=== PATIENT | male | born 1960 | race Caucasian/White ===

== ENCOUNTER 2017-07-10 08:28 | Outpatient (CLI) | payer OTHER ==
[~2017-07-10 08:28] MED LIST: ACTOS15 MG PO; GLIPIZIDE5 MG PO; HYZAAR 100-121 UDTAB PO; METFORMIN HCL500 MG PO; NEURONTIN300 MG PO
== END 2017-07-10 12:57 | disposition home or self-care (01) ==
LOC: LAB 08:28
DX: E11.9 Type 2 diabetes mellitus without complications (principal); Z79.4 Long term (current) use of insulin; E55.9 Vitamin D deficiency, unspecified; E78.2 Mixed hyperlipidemia; Z12.11 Encounter for screening for malignant neoplasm of colon; I10 Essential (primary) hypertension

== ENCOUNTER → 2017-12-11 08:04 | Outpatient (CLI) | payer OTHER | END | disposition home or self-care (01) | LOC: LAB 08:04 | DX: E11.65 Type 2 diabetes mellitus with hyperglycemia (principal); Z79.4 Long term (current) use of insulin; E78.2 Mixed hyperlipidemia; E03.8 Other specified hypothyroidism; E55.9 Vitamin D deficiency, unspecified ==

== ENCOUNTER 2018-07-19 10:16 | Outpatient (CLI) | payer OTHER | END 2018-07-19 10:49 | disposition home or self-care (01) | LOC: LAB 10:16 | DX: E03.8 Other specified hypothyroidism (principal); E11.65 Type 2 diabetes mellitus with hyperglycemia; E78.2 Mixed hyperlipidemia; E55.9 Vitamin D deficiency, unspecified; E04.2 Nontoxic multinodular goiter ==

== ENCOUNTER 2018-10-11 09:56 | Outpatient (CLI) | payer OTHER | END 2018-10-11 10:07 | disposition home or self-care (01) | LOC: LAB 09:56 | DX: R97.20 Elevated prostate specific antigen [PSA] (principal) ==

== ENCOUNTER 2018-11-22 10:27 | Outpatient (CLI) | payer OTHER | END 2018-11-22 10:33 | disposition home or self-care (01) | LOC: LAB 10:27 | DX: D64.89 Other specified anemias (principal); E11.9 Type 2 diabetes mellitus without complications; E78.2 Mixed hyperlipidemia; I10 Essential (primary) hypertension; E03.8 Other specified hypothyroidism ==

== ENCOUNTER 2018-12-31 14:12 | Emergency (ER) | payer OTHER ==
[~2018-12-31] VITALS: Ht 182.9 cm; Wt 112.0 kg
[2018-12-31] MEDS ORDERED: ASA81 MG PO (14:33)
[2018-12-31] MEDS ORDERED: GLIPIZIDE5 MG PO (14:34)
[2018-12-31] MEDS ORDERED: ATORVASTATIN CA10 MG PO (14:35)
[2018-12-31] MEDS ORDERED: CLARITIN10 M1 PO (15:09)
[2018-12-31] MEDS ORDERED: ZITHROMAX500 MG PO (15:09)
[2018-12-31] MEDS ORDERED: TUSNEL LIQUID178 ML PO (15:09)
== END 2018-12-31 15:21 | disposition home or self-care (01) ==
LOC: ER 14:12
DX: R05 Cough (principal)

== ENCOUNTER 2019-03-31 10:00 | Outpatient (CLI) | payer OTHER ==
[~2019-03-31 10:00] MED LIST changes: +ASA81 MG PO; +ATORVASTATIN CA10 MG PO; +CLARITIN10 M1 PO; +TUSNEL LIQUID178 ML PO; +ZITHROMAX500 MG PO
== END 2019-03-31 15:00 | disposition home or self-care (01) ==
LOC: LAB 10:00
DX: D64.89 Other specified anemias (principal); E11.9 Type 2 diabetes mellitus without complications; E78.2 Mixed hyperlipidemia; I10 Essential (primary) hypertension; E03.8 Other specified hypothyroidism

== ENCOUNTER 2019-06-27 10:28 | Outpatient (CLI) | payer OTHER | END 2019-06-27 10:37 | disposition home or self-care (01) | LOC: LAB 10:28 | DX: I10 Essential (primary) hypertension (principal); I25.10 Atherosclerotic heart disease of native coronary artery without angina pectoris; E78.01 Familial hypercholesterolemia; I35.1 Nonrheumatic aortic (valve) insufficiency; I34.0 Nonrheumatic mitral (valve) insufficiency; E66.8 Other obesity; Z68.33 Body mass index [BMI] 33.0-33.9, adult; E11.9 Type 2 diabetes mellitus without complications; E55.9 Vitamin D deficiency, unspecified; Z79.4 Long term (current) use of insulin; E88.81 Metabolic syndrome and other insulin resistance; Z98.61 Coronary angioplasty status ==

== ENCOUNTER → 2019-07-25 09:43 | Outpatient (CLI) | payer OTHER | END | disposition home or self-care (01) | LOC: LAB 09:43 | PROVIDERS: ATTEND Internal Medicine Sports Medicine | DX: D64.89 Other specified anemias (principal); E11.9 Type 2 diabetes mellitus without complications; E78.2 Mixed hyperlipidemia; I10 Essential (primary) hypertension; E03.8 Other specified hypothyroidism ==

== ENCOUNTER 2019-07-29 13:45 | Outpatient (CLI) | payer OTHER | END 2019-07-29 13:47 | disposition home or self-care (01) | LOC: SONOGRAMA 13:45 | PROVIDERS: ATTEND Internal Medicine Sports Medicine | DX: E03.8 Other specified hypothyroidism (principal); E04.1 Nontoxic single thyroid nodule ==

== ENCOUNTER 2019-08-05 09:52 | Outpatient (CLI) | payer OTHER | END 2019-08-05 10:22 | disposition home or self-care (01) | LOC: NUCLEAR 09:52 | PROVIDERS: ATTEND Otolaryngology Otolaryngology/Facial Plastic Surgery | DX: R42 Dizziness and giddiness (principal) ==

== ENCOUNTER → 2019-11-14 10:35 | Outpatient (CLI) | payer OTHER | END | disposition home or self-care (01) | LOC: LAB 10:35 | PROVIDERS: ATTEND Internal Medicine Sports Medicine | DX: E03.8 Other specified hypothyroidism (principal); E04.8 Other specified nontoxic goiter; E11.9 Type 2 diabetes mellitus without complications; E78.2 Mixed hyperlipidemia ==

== ENCOUNTER 2019-12-26 10:34 | Outpatient (CLI) | payer OTHER | END 2019-12-26 15:00 | disposition home or self-care (01) | LOC: LAB 10:34 | PROVIDERS: ATTEND Internal Medicine Endocrinology, Diabetes & Metabolism | DX: D64.89 Other specified anemias (principal); N39.0 Urinary tract infection, site not specified ==

== ENCOUNTER 2020-02-20 10:10 | Outpatient (CLI) | payer OTHER | END 2020-02-20 10:25 | disposition home or self-care (01) | LOC: LAB 10:10 | PROVIDERS: ATTEND Internal Medicine Endocrinology, Diabetes & Metabolism | DX: E03.8 Other specified hypothyroidism (principal); E11.65 Type 2 diabetes mellitus with hyperglycemia; E55.9 Vitamin D deficiency, unspecified; Z79.4 Long term (current) use of insulin; R94.6 Abnormal results of thyroid function studies ==

== ENCOUNTER → 2021-05-06 09:49 | Outpatient (CLI) | payer OTHER | END | disposition home or self-care (01) | LOC: LAB 09:49 | PROVIDERS: ATTEND Internal Medicine Endocrinology, Diabetes & Metabolism | DX: I25.10 Atherosclerotic heart disease of native coronary artery without angina pectoris (principal); I10 Essential (primary) hypertension; E78.01 Familial hypercholesterolemia; I35.1 Nonrheumatic aortic (valve) insufficiency; I34.0 Nonrheumatic mitral (valve) insufficiency; E66.8 Other obesity; E11.9 Type 2 diabetes mellitus without complications; E55.9 Vitamin D deficiency, unspecified; Z79.4 Long term (current) use of insulin; E88.81 Metabolic syndrome and other insulin resistance; Z68.33 Body mass index [BMI] 33.0-33.9, adult; Z98.61 Coronary angioplasty status; E78.2 Mixed hyperlipidemia; R94.6 Abnormal results of thyroid function studies; E11.59 Type 2 diabetes mellitus with other circulatory complications ==

== ENCOUNTER 2021-08-05 12:12 | Outpatient (CLI) | payer OTHER | END 2021-08-05 12:20 | disposition home or self-care (01) | LOC: LAB 12:12 | PROVIDERS: ATTEND Physical Medicine & Rehabilitation | DX: R05.9 Cough, unspecified (principal); R50.9 Fever, unspecified; R06.02 Shortness of breath; Z03.818 Encounter for observation for suspected exposure to other biological agents ruled out; Z11.52 Encounter for screening for COVID-19; Z20.822 Contact with and (suspected) exposure to COVID-19 ==

== ENCOUNTER 2021-08-09 10:56 | Outpatient (CLI) | payer OTHER | END 2021-08-09 10:59 | disposition home or self-care (01) | LOC: LAB 10:56 | PROVIDERS: ATTEND Specialist | DX: Z68.34 Body mass index [BMI] 34.0-34.9, adult (principal); Z98.61 Coronary angioplasty status; I10 Essential (primary) hypertension; I25.10 Atherosclerotic heart disease of native coronary artery without angina pectoris; E78.01 Familial hypercholesterolemia; I34.0 Nonrheumatic mitral (valve) insufficiency; E66.8 Other obesity; E11.9 Type 2 diabetes mellitus without complications; E55.9 Vitamin D deficiency, unspecified; Z79.4 Long term (current) use of insulin; E88.81 Metabolic syndrome and other insulin resistance ==

== ENCOUNTER → 2021-09-02 08:19 | Outpatient (CLI) | payer OTHER | END | disposition home or self-care (01) | LOC: LAB 08:19 | PROVIDERS: ATTEND Internal Medicine Endocrinology, Diabetes & Metabolism | DX: E11.65 Type 2 diabetes mellitus with hyperglycemia (principal); N40.0 Benign prostatic hyperplasia without lower urinary tract symptoms; E55.9 Vitamin D deficiency, unspecified; D64.9 Anemia, unspecified ==

== ENCOUNTER 2021-11-04 09:38 | Outpatient (CLI) | payer OTHER | END 2021-11-04 09:39 | disposition home or self-care (01) | LOC: LAB 09:38 | PROVIDERS: ATTEND Internal Medicine Sports Medicine | DX: I25.10 Atherosclerotic heart disease of native coronary artery without angina pectoris (principal); E78.01 Familial hypercholesterolemia; E11.9 Type 2 diabetes mellitus without complications; E55.9 Vitamin D deficiency, unspecified; E88.81 Metabolic syndrome and other insulin resistance; E66.8 Other obesity; Z79.4 Long term (current) use of insulin; Z68.33 Body mass index [BMI] 33.0-33.9, adult; Z98.61 Coronary angioplasty status; D64.9 Anemia, unspecified; E78.2 Mixed hyperlipidemia; I10 Essential (primary) hypertension; E03.8 Other specified hypothyroidism; R97.20 Elevated prostate specific antigen [PSA] ==

== ENCOUNTER → 2022-01-30 10:50 | Outpatient (CLI) | payer OTHER | END | disposition home or self-care (01) | LOC: LAB 10:50 | PROVIDERS: ATTEND Internal Medicine Sports Medicine | DX: D64.9 Anemia, unspecified (principal); E11.9 Type 2 diabetes mellitus without complications; E78.2 Mixed hyperlipidemia; I10 Essential (primary) hypertension; E03.8 Other specified hypothyroidism ==

== ENCOUNTER 2022-05-19 10:02 | Outpatient (CLI) | payer OTHER | END 2022-05-19 11:51 | disposition home or self-care (01) | LOC: LAB 10:02 | PROVIDERS: ATTEND Internal Medicine Sports Medicine | DX: D64.9 Anemia, unspecified (principal); E11.9 Type 2 diabetes mellitus without complications; E78.2 Mixed hyperlipidemia; I10 Essential (primary) hypertension; E03.8 Other specified hypothyroidism ==

== ENCOUNTER 2022-07-24 10:24 | Outpatient (CLI) | payer OTHER | END 2022-07-24 10:28 | disposition home or self-care (01) | LOC: LAB 10:24 | PROVIDERS: ATTEND Internal Medicine Sports Medicine | DX: D64.9 Anemia, unspecified (principal); E11.9 Type 2 diabetes mellitus without complications; E78.2 Mixed hyperlipidemia; I10 Essential (primary) hypertension; E03.8 Other specified hypothyroidism ==

== ENCOUNTER 2022-10-18 07:53 | Outpatient (CLI) | payer OTHER | END 2022-10-18 07:58 | disposition home or self-care (01) | LOC: LAB 07:53 | PROVIDERS: ATTEND Internal Medicine Endocrinology, Diabetes & Metabolism | DX: E11.69 Type 2 diabetes mellitus with other specified complication (principal); D64.9 Anemia, unspecified; E78.2 Mixed hyperlipidemia; E51.9 Thiamine deficiency, unspecified; N39.0 Urinary tract infection, site not specified ==

== ENCOUNTER 2023-01-24 10:30 | Outpatient (CLI) | payer OTHER ==
[2023-01-24 11:16] LABS: PH,URINE 5.5 (5.0-8.0); URINE APPEARANCE Clear; URINE BILIRRUBIN Negative (NEGATIVE); URINE BLOOD Trace; URINE COLOR Yellow; URINE LEUKOCYTE Negative; URINE NITRATE Negative; URINE PROTEIN Negative (NEGATIVE); URINE UROBILINOGEN 0.2 E.U./dl
[2023-01-24 11:21] LABS: URINE BACTERIA 15.1 uL (0.0-1933); URINE EPITHELIAL CELLS 5.2 uL (0.0-38.8)
[2023-01-24 11:27] LABS: HEMATOCRIT 40.1 % (39.0-48.0); HEMOGLOBIN 13.6 g/dL (13-16.00); MEAN CELL VOLUME 86.3 fL (80.0-100.00); MEAN CORPUSCULAR HEMOGLOBIN 29.2 pg (27.00-32.0); MEAN CORPUSCULAR HGB CONC 33.9 g/dl (32.0-36.0); PLATELET COUNT 235 K/uL (150-450); RED BLOOD COUNT 4.64 M/uL (4.00-6.00); RED CELL DISTRIBUTION WIDTH 13.6 % (11.5-14.5)
[2023-01-24 11:34] LABS: URINE GLUCOSE 500 MG/DL (NEGATIVE); URINE WBC 1.6 uL (0.0-23.2)
[2023-01-24 11:58] LABS: BILIRUBIN TOTAL 0.71 mg/dL (0.3-1.2); CALCIUM 9.3 mg/dL (8.5-10.1); CHOL HDL RATIO 2.4 (0-5.0); CREATININE SERUM 0.82 mg/dL (0.70-1.30); GFR 95.83; GLOBULINA 3.5 G/DL (2.4-3.5); POTASSIUM 4.08 mEq/L (3.5-5.1); T4 FREE 1.01 NG/ML (0.76-1.46); TOTAL PROTEIN 7.5 gm/dL (6.4-8.2); TSH 3.5 uIU/mL (0.358-3.74)
== END 2023-01-24 10:31 | disposition home or self-care (01) ==
LOC: LAB 10:30
PROVIDERS: ATTEND Internal Medicine Sports Medicine
DX: D64.9 Anemia, unspecified (principal); E11.9 Type 2 diabetes mellitus without complications; E78.2 Mixed hyperlipidemia; I10 Essential (primary) hypertension; E03.8 Other specified hypothyroidism

== ENCOUNTER → 2023-03-15 08:53 | Outpatient (CLI) | payer OTHER ==
[2023-03-15 10:00] LABS: HEMATOCRIT 39.7 % (39.0-48.0); HEMOGLOBIN 13.4 g/dL (13-16.00); MEAN CELL VOLUME 88.5 fL (80.0-100.00); MEAN CORPUSCULAR HGB CONC 33.9 g/dl (32.0-36.0); PLATELET COUNT 218 K/uL (150-450); RED BLOOD COUNT 4.48 M/uL (4.00-6.00); RED CELL DISTRIBUTION WIDTH 13.5 % (11.5-14.5)
[2023-03-15 10:25] LABS: ALBUMIN 3.9 gm/dL (3.4-5.0); BILIRUBIN TOTAL 0.44 mg/dL (0.3-1.2); CALCIUM 8.7 mg/dL (8.5-10.1); CREATININE SERUM 0.87 mg/dL (0.70-1.30); GFR 89.51; GLOBULINA 3.2 G/DL (2.4-3.5); POTASSIUM 3.82 mEq/L (3.5-5.1); TOTAL PROTEIN 7.1 gm/dL (6.4-8.2)
== END | disposition home or self-care (01) ==
LOC: LAB 08:53
DX: E78.5 Hyperlipidemia, unspecified (principal); I10 Essential (primary) hypertension; N39.0 Urinary tract infection, site not specified; E11.9 Type 2 diabetes mellitus without complications; E53.8 Deficiency of other specified B group vitamins

== ENCOUNTER 2023-11-13 11:45 | Outpatient (CLI) | payer OTHER | END 2023-11-13 11:51 | disposition home or self-care (01) | LOC: RAD 11:45 | DX: M47.812 Spondylosis without myelopathy or radiculopathy, cervical region (principal); M47.814 Spondylosis without myelopathy or radiculopathy, thoracic region; M47.817 Spondylosis without myelopathy or radiculopathy, lumbosacral region ==

== ENCOUNTER → 2023-11-30 11:30 | Outpatient (CLI) | payer OTHER ==
[2023-11-30 12:33] LABS: HEMATOCRIT 40.4 % (39.0-48.0); HEMOGLOBIN 13.9 g/dL (13-16.00); MEAN CELL VOLUME 86.9 fL (80.0-100.00); MEAN CORPUSCULAR HEMOGLOBIN 29.9 pg (27.00-32.0); MEAN CORPUSCULAR HGB CONC 34.4 g/dl (32.0-36.0); PLATELET COUNT 227 K/uL (150-450); RED BLOOD COUNT 4.65 M/uL (4.00-6.00); RED CELL DISTRIBUTION WIDTH 13.5 % (11.5-14.5)
[2023-11-30 12:36] LABS: URINE APPEARANCE Clear; URINE BILIRRUBIN Negative (NEGATIVE); URINE BLOOD Trace; URINE COLOR Yellow; URINE KETONE Negative (NEGATIVE); URINE LEUKOCYTE Negative; URINE NITRATE Negative; URINE PROTEIN Negative (NEGATIVE); URINE UROBILINOGEN 0.2 E.U./dl
[2023-11-30 12:39] LABS: URINE BACTERIA 22.6 uL (0.0-1933); URINE EPITHELIAL CELLS 9.5 uL (0.0-38.8); URINE RBC 10.2 uL (0.0-20.8); URINE WBC 5.8 uL (0.0-23.2)
[2023-11-30 12:43] LABS: ERYTHROCYTE SEDIMENTATION RATE 8 mm/hr
[2023-11-30 12:45] LABS: URINE CAST 0.15 uL (0.0-1.40); URINE GLUCOSE >=1000 MG/DL (NEGATIVE)
[2023-11-30 13:09] LABS: ALBUMIN 4.3 gm/dL (3.4-5.0); ALKALINE PHOSPHATASE 62 U/L (50-136); ALT/SGPT 29 U/L (12-78); ANION GAP 9 (10.0-20.0); AST/SGOT 14 U/L (15-37); BLOOD UREA NITROGEN 22 mg/dL (7-18); BUN CREA RATIO 26 (7.0-25.0); CALCIUM 9.3 mg/dL (8.5-10.1); CARBON DIOXIDE 28 mEq/L (21-32); CHLORIDE 106 mmol/L (98-107); CHOL HDL RATIO 2.3 (0-5.0); CHOLESTEROL 91 mg/dL (0-200); CREATININE SERUM 0.86 mg/dL (0.70-1.30); FREE TRIODOTIRONINE 2.64 pg/ml (2.18-3.98); GLOBULINA 3.3 G/DL (2.4-3.5); GLUCOSE FASTING 161 mg/dL (65-100); HDL 39 mg/dl (40-60); LDL 37 mg/dl (0-130); OSMOLALITY SERUM 284 MOSM/KG (275-295); POTASSIUM 3.92 mEq/L (3.5-5.1); PROSTATIC SPECIFIC ANTIGEN 0.128 NG/ML (0.010-4.00); SODIUM 139 mmol/L (136-145); TOTAL PROTEIN 7.6 gm/dL (6.4-8.2); TRIGLYCERIDES 77 mg/dL (0-150); VLDL 15 (0-39)
[2023-11-30 13:11] LABS: C-REACTIVE PROTEIN < 0.29 MG/DL (0.00-0.29)
[2023-12-02 11:08] LABS: VITAMIN D3 25 HYDROXY 28.18 ng/ml (30-120)
[2023-12-03 15:07] LABS: ANTI THYROID PEROXIDASE < 9 IU/mL (0-34); PROLACTIN 11.2 ng/mL (3.6-25.2)
[2023-12-04 05:05] LABS: HOMOCYSTEINE 7.9 umol/L (0.0-17.2)
== END | disposition home or self-care (01) ==
LOC: LAB 11:30
PROVIDERS: ATTEND Internal Medicine Endocrinology, Diabetes & Metabolism
DX: E11.65 Type 2 diabetes mellitus with hyperglycemia (principal); E03.9 Hypothyroidism, unspecified; D64.9 Anemia, unspecified; E53.8 Deficiency of other specified B group vitamins; E78.2 Mixed hyperlipidemia; E22.1 Hyperprolactinemia; E29.1 Testicular hypofunction; E55.9 Vitamin D deficiency, unspecified; R97.0 Elevated carcinoembryonic antigen [CEA]; R79.82 Elevated C-reactive protein (CRP); E72.11 Homocystinuria; N39.0 Urinary tract infection, site not specified

== ENCOUNTER 2024-04-11 09:01 | Outpatient (CLI) | payer OTHER ==
[2024-04-11 10:24] LABS: HEMOGLOBIN 13.9 g/dL (13-16.00); MEAN CELL VOLUME 87.8 fL (80.0-100.00); MEAN CORPUSCULAR HEMOGLOBIN 29.7 pg (27.00-32.0); MEAN CORPUSCULAR HGB CONC 33.8 g/dl (32.0-36.0); PLATELET COUNT 224 K/uL (150-450); RED BLOOD COUNT 4.67 M/uL (4.00-6.00); RED CELL DISTRIBUTION WIDTH 13.4 % (11.5-14.5)
[2024-04-11 10:52] LABS: BILIRUBIN TOTAL 0.7 mg/dL (0.3-1.2); CALCIUM 9.8 mg/dL (8.5-10.1); CHOL HDL RATIO 2.6 (0-5.0); CREATININE SERUM 0.9 mg/dL (0.70-1.30); GFR 85.79; GLOBULINA 3.4 G/DL (2.4-3.5); POTASSIUM 4.27 mEq/L (3.5-5.1); TOTAL PROTEIN 7.4 gm/dL (6.4-8.2)
== END 2024-04-11 23:00 | disposition home or self-care (01) ==
LOC: LAB 09:01
PROVIDERS: ATTEND Internal Medicine Endocrinology, Diabetes & Metabolism
DX: D64.9 Anemia, unspecified (principal); E11.65 Type 2 diabetes mellitus with hyperglycemia; E78.2 Mixed hyperlipidemia

== ENCOUNTER → 2024-07-03 10:44 | Outpatient (CLI) | payer OTHER ==
[2024-07-03 11:57] LABS: BASO % 0.6 % (0.1-1.2); EOS # 0.08 (0.04-0.54); HEMATOCRIT 37.9 % (40.1-51.0); HEMOGLOBIN 12.9 g/dL (13.7-17.5); LYMPH # 2.51 (1.18-3.74); LYMPH % 31.6 % (19.3-53.1); MEAN CORPUSCULAR HEMOGLOBIN 29.2 pg (25.6-32.2); MONO # 0.56 (0.24-0.82); NEUT # 4.74 (1.56-6.13); NEUT % 59.7 % (34.0-71.1); PLATELET COUNT 229 K/uL (163-369); RED BLOOD COUNT 4.42 M/uL (4.63-6.08); RED CELL DISTRIBUTION WIDTH 12.6 % (11.6-14.4)
[2024-07-03 12:10] LABS: URINE APPEARANCE Clear; URINE BILIRRUBIN Negative (NEGATIVE); URINE BLOOD Trace; URINE COLOR Yellow; URINE KETONE Negative (NEGATIVE); URINE LEUKOCYTE Negative; URINE NITRATE Negative; URINE PROTEIN Negative (NEGATIVE); URINE UROBILINOGEN 0.2 E.U./dl
[2024-07-03 12:16] LABS: URINE BACTERIA 7.3 uL (0.0-1933); URINE EPITHELIAL CELLS 8.7 uL (0.0-38.8); URINE RBC 12.6 uL (0.0-20.8); URINE WBC 2.5 uL (0.0-23.2)
[2024-07-03 12:30] LABS: URINE GLUCOSE 100 MG/DL (NEGATIVE)
[2024-07-03 13:20] LABS: BILIRUBIN TOTAL 0.56 mg/dL (0.3-1.2); CALCIUM 8.8 mg/dL (8.5-10.1); CHOL HDL RATIO 2.1 (0-5.0); CREATININE SERUM 0.91 mg/dL (0.70-1.30); GFR 84.7; GLOBULINA 3.4 G/DL (2.4-3.5); POTASSIUM 3.96 mEq/L (3.5-5.1); PROSTATIC SPECIFIC ANTIGEN 0.101 NG/ML (0.010-4.00); T4 FREE 1.11 NG/ML (0.76-1.46); TOTAL PROTEIN 7.4 gm/dL (6.4-8.2); TSH 2.42 uIU/mL (0.358-3.74)
[2024-07-03 15:11] LABS: VITAMIN D3 25 HYDROXY 64.11 ng/ml (30-120)
== END | disposition home or self-care (01) ==
LOC: LAB 10:44
PROVIDERS: ATTEND Internal Medicine Endocrinology, Diabetes & Metabolism
DX: E11.65 Type 2 diabetes mellitus with hyperglycemia (principal); E03.9 Hypothyroidism, unspecified; D64.9 Anemia, unspecified; E53.8 Deficiency of other specified B group vitamins; E78.2 Mixed hyperlipidemia; E55.9 Vitamin D deficiency, unspecified; N39.0 Urinary tract infection, site not specified

== ENCOUNTER → 2024-11-04 11:32 | Outpatient (CLI) | payer OTHER ==
[2024-11-04 12:14] LABS: BASO % 0.4 % (0.1-1.2); EOS # 0.08 (0.04-0.54); EOS % 1.1 % (0.7-7.0); LYMPH # 2.46 (1.18-3.74); LYMPH % 34.5 % (19.3-53.1); MEAN PLATELET VOLUME 10.00 fl (9.4-12.4); MONO # 0.75 (0.24-0.82); MONO % 10.5 % (4.7-12.5); NEUT # 3.79 (1.56-6.13); NEUT % 53.2 % (34.0-71.1); RED CELL DISTRIBUTION WIDTH 13.1 % (11.6-14.4)
[2024-11-04 12:40] LABS: ALT/SGPT 36.0 U/L (12-78); AST/SGOT 24.0 U/L (15-37); BILIRUBIN TOTAL 0.85 mg/dL (0.3-1.2); BUN CREA RATIO 14.0 (7.0-25.0); CREATININE SERUM 0.85 mg/dL (0.70-1.30); GFR 91.33; GLOBULINA 3.1 G/DL (2.4-3.5); GLUCOSE FASTING 86.0 mg/dL (65-100); OSMOLALITY SERUM 277.0 MOSM/KG (275-295); PROSTATIC SPECIFIC ANTIGEN 0.173 NG/ML (0.010-4.00)
== END | disposition home or self-care (01) ==
LOC: LAB 11:32
PROVIDERS: ATTEND Internal Medicine Endocrinology, Diabetes & Metabolism
DX: E11.65 Type 2 diabetes mellitus with hyperglycemia (principal); E03.9 Hypothyroidism, unspecified; N40.0 Benign prostatic hyperplasia without lower urinary tract symptoms

== ENCOUNTER 2024-11-04 11:57 | Outpatient (CLI) | payer OTHER | END 2024-11-04 12:01 | disposition home or self-care (01) | LOC: SONOGRAMA 11:57 | PROVIDERS: ATTEND Internal Medicine Endocrinology, Diabetes & Metabolism | DX: K74.01 Hepatic fibrosis, early fibrosis (principal) ==